=== PATIENT | female | born 1960 | race Caucasian/White ===

== ENCOUNTER → 2017-07-18 08:45 | Outpatient (CLI) | payer BC, SELFPAY ==
--- NOTE | 2017-07-18 08:49 | MM_ITS ---
MM Dig screening mamm BI w/CAD CAD Screening COMPARISON: Digital mammograms 06/15/2015 and 07/05/2016 INDICATION: There is no personal or family history of breast cancer. There is been previous biopsy left breast for benign disease. TECHNIQUE: Standard CC and MLO images were obtained. R2 CAD reviewed. FINDINGS: Moderate diffuse fibroglandular densities are seen in both breasts again more prominent subareolar region of the right breast than left. The biopsy clip is again noted left breast. There is no suspicious lesion and there are no suspicious microcalcifications. IMPRESSION: Stable exam with no suspicious lesion seen BI-RADS Category: 2 Benign Finding(s) RECOMMENDED FOLLOW-UP: 1YR - 1 YEAR FOLLOW-UP (A letter has been sent to the patient regarding results of the study.)
== END ==
PROVIDERS: Family Provider Internal Medicine Adolescent Medicine; PCP Internal Medicine Adolescent Medicine; Visit Provider Nurse Practitioner Obstetrics & Gynecology
DX: Z12.31 Encounter for screening mammogram for malignant neoplasm of breast (principal)
CPT/HCPCS: 77067

== ENCOUNTER → 2018-07-25 09:40 | Outpatient (CLI) | payer BC, SELFPAY ==
--- NOTE | 2018-07-25 09:44 | MM_ITS ---
MM Dig screening mamm BI w/CAD CAD Screening COMPARISON: Digital mammograms with CAD 07/05/2016 and 07/18/2017 INDICATION: There is no personal or family history of breast cancer. There is been previous biopsy left breast for benign disease. TECHNIQUE: Standard CC and MLO images were obtained. R2 CAD reviewed. FINDINGS: Scattered fibroglandular densities are seen in both breast. Again noted is a biopsy clip left breast. There are stable nodular densities in each breast. There are couple benign-appearing calcifications in each breast. There is no suspicious lesion and there are no suspicious microcalcifications. IMPRESSION: Fibrofatty parenchyma no suspicious lesion seen BI-RADS Category: 2 Benign Finding(s) RECOMMENDED FOLLOW-UP: 1YR - 1 YEAR FOLLOW-UP (A letter has been sent to the patient regarding results of the study.)
== END ==
PROVIDERS: PCP Internal Medicine Adolescent Medicine; Visit Provider Internal Medicine Adolescent Medicine
DX: Z12.31 Encounter for screening mammogram for malignant neoplasm of breast (principal)
CPT/HCPCS: 77067

== ENCOUNTER → 2019-12-05 09:41 | Outpatient (CLI) | payer MEDICARE, SELFPAY ==
--- NOTE | 2019-12-05 09:41 | MM_ITS ---
PROCEDURE: MM DIG SCREENING MAMM BI W/CAD Digital Breast Tomosynthesis Included CLINICAL INDICATION: screening xmg There is no personal or family history of breast cancer. There has been a previous biopsy left breast for benign disease. COMPARISON: [facility] DIG MAMM-SCREEN ADDIE W/CAD from 07/05/2016 [facility] MM Dig screening mamm BI w/CAD from 07/18/2017 [facility] MM Dig screening mamm BI w/CAD from 07/25/2018 TECHNIQUE: Standard CC and MLO images and 3D Tomosynthesis was obtained. R2 CAD reviewed. FINDINGS: Mild to moderate fibroglandular densities are seen in the subareolar regions and central portions of both breasts. There is a biopsy clip left breast. There are few scattered benign-appearing calcifications in each breast. There is a stable small benign-appearing nodular density central portion right breast. There is stable minimal post biopsy scarring central portion left breast. There is no suspicious lesion in either breast and no suspicious microcalcifications. IMPRESSION: Fibrofatty parenchyma with no suspicious lesions seen BI-RAD Category: 2 Benign Finding(s) FOLLOW-UP: 1YR 1 Year Follow-up (A letter has been sent to the patient regarding results of the study.) Dictated by: Dr. Shahram Dunn MD 12/07/2019 09:[address] Shahram Dunn MD in [place] 12/07/2019 09:23
== END ==
PROVIDERS: PCP Internal Medicine Adolescent Medicine; Visit Provider Nurse Practitioner Obstetrics & Gynecology
DX: Z12.31 Encounter for screening mammogram for malignant neoplasm of breast (principal); Z01.419 Encounter for gynecological examination (general) (routine) without abnormal findings
CPT/HCPCS: 77063; 77067; 87086; 87088; 87186

== ENCOUNTER → 2019-12-05 15:45 | Outpatient (CLI) | payer MEDICARE, SELFPAY | PROVIDERS: Visit Provider Nurse Practitioner Obstetrics & Gynecology | DX: Z12.31 Encounter for screening mammogram for malignant neoplasm of breast (principal); N39.0 Urinary tract infection, site not specified | CPT/HCPCS: 77063; 77067; 87086; 87088; 87186 ==

== ENCOUNTER → 2019-12-10 12:50 | Outpatient (CLI) | payer MEDICARE, SELFPAY ==
--- NOTE | 2019-12-10 12:51 | US_ITS ---
PROCEDURE: US TRANSVAGINAL CLINICAL INDICATION: pelvic pain COMPARISON: PTV US PELVIS-TRANSVAGINAL ONLY from 06/19/2015 FINDINGS: Nabothian cysts are present measuring 2 12 mm. There is a 2.5 cm left ovarian cyst. No cul-de-sac fluid UTERUS: 8cm x 5cmx 5cm with a combined endometrial thickness of 2.7mm LEFT OVARY: [id number] with a volume of 6.8ml. RIGHT OVARY: [id number] with a volume of 3.8ml. IMPRESSION: 2.5 cm left ovarian cyst otherwise negative pelvic ultrasound Dictated by: Hany Rollins MD 12/10/2019 18:12 Electronically signed by Hany Rollins MD in [place] 12/10/2019 18:12
== END ==
PROVIDERS: PCP Internal Medicine Adolescent Medicine; Visit Provider Nurse Practitioner Obstetrics & Gynecology
DX: R10.2 Pelvic and perineal pain (principal)
CPT/HCPCS: 76830

== ENCOUNTER → 2020-11-17 13:21 | Outpatient (CLI) | payer MEDICARE, SELFPAY | PROVIDERS: Visit Provider Internal Medicine Adolescent Medicine | DX: R30.0 Dysuria (principal) | CPT/HCPCS: 87086; 87088; 87186 ==

== ENCOUNTER 2021-03-24 11:00 | Outpatient (RCR) | payer MEDICARE, SELFPAY ==
--- NOTE | 2020-11-24 10:23 | HMH.PTOPWND ---
Rehab Outpt Wound Evaluation Rehab OP Wound Evaluation Start: 11/24/20 10:12 Freq: Status: Active Protocol: Document 11/24/20 10:12 BONITA (Rec: 11/24/20 10:23 PHORYOLY [id number]) Electronically Signed By Bridger Sidhu, PT 11/24/20 10:12 Subjective/History History History Pt is 60 yowf who presents with c/o B LE edema, L > R, x ~ 1-2 yrs. She reports significantly worse edema over the past 2-3 mos with feelings of, my feet get really tight in my shoes and my legs are really heavy. B LE with pitting edema in gaitor areas and mild erythema noted as well. She reports pain in B LE with prolonged standing or walking, but no numbness or tingling. 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 Subjective Subjective Pt reports pain 7/10 at worst. No c/o tenderness to palpation. @+ pitting edema noted as well as fibrotic edema in B lower legs and feet . Lymphedema Eval Classification of Lymphedema Secondary Lymphedema Yes Stemmer's sign Stemmer's Sign yes Stage of Lymphedema Lymphedema stages Stage II (Pitting edema, increased fibrosis w/ decreased pitting) Skin Changes Dry Skin Yes Skin Folds Yes Redness Yes Brittle Uneven Nails Yes Discoloration of Skin Yes Other Changes Yes Pain Scale Pain Scale (0-10) 7 Radiation Therapy Has received radiation therapy no Chemo Therapy Has received chemo therapy no Affected Extremities Areas Affected by Lymphedema/Edema Right Lower Extremity,Left Lower Extremity Manual Lymphatic Drainage Treatment Area MLD Treatment Area Right Lower Extremity,Left Lower Extremity Wound Problems/Impairments Impairments Problems/Impairmments Impaired Endurance,Impaired Gait Pattern,Impaired Walking, Impaired Standing,Impaired Recreational Activities, Increased Edema,Lymphedema Present,Subjective C/O Pain,
--- NOTE | 2020-12-23 14:12 | HMH.RHREAS ---
Rehab Reassessment Rehab OP Re-assessment Start: 12/23/20 14:08 Freq: Status: Active Protocol: Document 12/23/20 14:09 BONITA (Rec: 12/23/20 14:12 BONITA [id number]) Electronically Signed By Bridger Sidhu, PT 12/23/20 14:09 Rehab Re-assessment Subjective Subjective Pt reports quite a bit less pain overall, 4/10 at worst. Objective Objective Notes Edema: 1+ pitting edema in B lower legs, less fibrotic edema to B thighs and feet. Assessment Progress Assessment Progressing as Expected Assessment Notes Improving edema, less tnederness, and less pain in B LE. Pt much more active at home and steadily increasing ambulation ability. Patient goals met ST,2,3,4 Goals Not Met LT,2,3,4,5,6 Revised Goals none Plan Plan Cont per initial POC. Frequency of Therapy 2 x/wk Duration of therapy 8 wks Time and Billing Re-Eval Time 15 Re-Eval Billing Units 1 PHYSICIAN CERTIFICATION: I certify the specified therapy services for Rosie Cardenas are required, authorized, and reviewed every 30 days.
--- NOTE | 2021-02-01 11:13 | HMH.RHREAS ---
Rehab Reassessment Rehab OP Re-assessment Start: 12/23/20 14:08 Freq: Status: Active Protocol: Document 02/01/21 11:11 BONITA (Rec: 02/01/21 11:13 BONITA [id number]) Electronically Signed By Bridger Sidhu, PT 02/01/21 11:11 Rehab Re-assessment Subjective Subjective Pt reports quite a bit less pain overall, 4/10 at worst. Objective Objective Notes Edema: 1+ pitting edema in B lower legs, less fibrotic edema to B thighs and feet. 0/ 4 tenderness to palpation along B lower legs. Assessment Progress Assessment Progressing as Expected Assessment Notes Improving edema, almost no tenderness, and much less pain in B LE. Pt continues to be much more active at home and steadily increasing ambulation ability. Patient goals met ST,2,3,4 Goals Not Met LT,2,3,4,5,6 Revised Goals none Plan Plan Cont per initial POC. Frequency of Therapy 2 x/wk Duration of therapy 8 wks Time and Billing Re-Eval Time 15 Re-Eval Billing Units 1 PHYSICIAN CERTIFICATION: I certify the specified therapy services for Rosie Cardenas are required, authorized, and reviewed every 30 days.
--- NOTE | 2021-02-26 10:24 | HMH.RHREAS ---
Rehab Reassessment Rehab OP Re-assessment Start: 12/23/20 14:08 Freq: Status: Active Protocol: Document 02/26/21 10:21 BONITA (Rec: 02/26/21 10:24 BONITA [id number]) Electronically Signed By Bridger Sidhu, PT 02/26/21 10:21 Rehab Re-assessment Subjective Subjective I can get my shoes on easier and they feel better when I get up to walk. Objective Objective Notes B LE with less fibrotic edema, more soft tissue quality throughout. 1/4 tenderness to palpation on B lower legs. Toe creases more visible bilaterally denoting decreased B foot edema. Assessment Progress Assessment Progressing as Expected Assessment Notes Improving edema, almost no tenderness, and much less pain in B LE. Improved mobility, remains mildly tender to palpation in B gaitor area though. Patient goals met ST,2,3,4 Goals Not Met LT,2,3,4,5,6 Revised Goals none Plan Plan Cont per initial POC. Frequency of Therapy 2 x/wk Duration of therapy 8 wks Time and Billing Re-Eval Time 15 Re-Eval Billing Units 1 PHYSICIAN CERTIFICATION: I certify the specified therapy services for Rosie Cardenas are required, authorized, and reviewed every 30 days.
== END 2021-03-24 11:05 | disposition home or self-care (01) ==
LOC: PT 11:00
PROVIDERS: PCP Internal Medicine Adolescent Medicine; Visit Provider Internal Medicine Adolescent Medicine
DX: I89.0 Lymphedema, not elsewhere classified (principal)
CPT/HCPCS: 97140; 97162; 97164; 97760

== ENCOUNTER → 2023-03-08 10:09 | Outpatient (CLI) | payer MEDICARE, SELFPAY ==
--- NOTE | 2023-03-08 10:15 | MM_ITS ---
PROCEDURE INFORMATION: Exam: MG Bilateral Screening 3D Mammography Exam date and time: 03/08/2023 10:15 AM Age: 62 years old Clinical indication: Screening examination TECHNIQUE: Imaging protocol: Bilateral Screening tomosynthesis and 2D mammography including computer-aided detection (CAD) when performed. COMPARISON: 1. MG MM DIG SCREENING MAMM BI W/CAD 12/05/2019 9:46 AM 2. MG [facility] MM Dig screening mamm BI w/CAD 07/25/2018 10:08 AM FINDINGS: MAMMOGRAPHY: Breast composition: There are scattered areas of fibroglandular density. Mass: None. Architectural distortion: None. Calcifications: No suspicious calcifications. Asymmetric density: None. Skin thickening: None. Axillary adenopathy: None. IMPRESSION: No mammographic evidence of malignancy. Annual screening is recommended unless otherwise clinically indicated. ASSESSMENT: BI-RADS Category 1: Negative
== END ==
PROVIDERS: PCP Internal Medicine Adolescent Medicine; Visit Provider Internal Medicine Adolescent Medicine
DX: Z12.31 Encounter for screening mammogram for malignant neoplasm of breast (principal)
CPT/HCPCS: 77063; 77067

== ENCOUNTER 2024-05-28 09:59 | Outpatient (CLI) | payer MEDICARE, SELFPAY ==
--- NOTE | 2024-05-28 10:10 | XR_ITS ---
FINAL REPORT CLINICAL HISTORY: FALL 3 WEEKS AGO FINDINGS: Five views were obtained. There is no acute fracture. Alignment is within normal limits. There is moderate diffuse degenerative disc disease. Moderate lower lumbar facet arthropathy is identified. IMPRESSION: Degenerative changes without acute process. Reviewed, Interpreted and Dictated by Debbie Hagen MD Transcribed by Oneida Chen Authenticated and [facility]
--- NOTE | 2024-05-28 10:10 | XR_ITS ---
FINAL REPORT CLINICAL HISTORY: FALL 3 WEEKS AGO FINDINGS: LEFT HIP Three views of the left hip demonstrate no acute fracture or dislocation. The joint spaces appear normal. The visualized bony structures are well aligned. No soft tissue abnormality is seen. IMPRESSION: No acute bony abnormality. Reviewed, Interpreted and Dictated by Debbie Hagen MD Transcribed by Oneida Chen Authenticated and [facility]
== END 2024-05-28 23:59 | disposition home or self-care (01) ==
LOC: RAD 10:00
PROVIDERS: PCP Internal Medicine Adolescent Medicine; Visit Provider Nurse Practitioner Family
DX: M25.552 Pain in left hip (principal); M54.50 Low back pain, unspecified
CPT/HCPCS: 72110; 73502

== ENCOUNTER 2025-06-10 13:42 | Outpatient (CLI) | payer MEDICARE, SELFPAY ==
--- NOTE | 2025-06-10 13:59 | MM_ITS ---
PROCEDURE INFORMATION: Exam: MG Bilateral Screening 3D Mammography Exam date and time: 06/10/2025 2:21 PM Age: 64 years old Clinical indication: Screening examination TECHNIQUE: Imaging protocol: Bilateral Screening tomosynthesis and 2D mammography including computer-aided detection (CAD) when performed. COMPARISON: MG MM DIG SCREENING MAMM BI W/CAD 03/08/2023 10:15 AM FINDINGS: MAMMOGRAPHY: Breast composition: There are scattered areas of fibroglandular density. Mass: None. Architectural distortion: None. Calcifications: No suspicious calcifications. Asymmetric density: None. Skin thickening: None. Axillary adenopathy: None. IMPRESSION: No mammographic evidence of malignancy. Annual screening is recommended unless otherwise clinically indicated. ASSESSMENT: BI-RADS Category 1: Negative.
[2025-06-10 14:08] LABS: Hematocrit 45.8 % (37.0-47.0); Hemoglobin 14.8 g/dL (12.2-16.2); Immature Granulocytes % 0.3 %; Mean Corpuscular HGB Conc 32.3 g/dL (31.8-35.4); Mean Corpuscular Hemoglobin 29.6 pg (27.0-31.2); Mean Corpuscular Volume 91.6 fl (81-99); Nucleated Red Blood Cells % 0 %; Platelet Count 249 K/mm3 (142-424); Red Blood Count 5.00 M/mm3 (4.20-5.40); Red Cell Distribution Width-SD 44.4 fL; White Blood Count 6.8 K/mm3 (4.8-10.8)
[2025-06-10 14:45] LABS: Alanine Aminotransferase 14 U/L (12-78); Albumin Level 4.3 g/dl (3.5-5.0); Albumin/Globulin Ratio 1.7 (1.1-1.8); Alkaline Phosphatase 96 U/L (38-126); Anion Gap 8.4 mEq/L (5-15); Aspartate Amino Transferase 22 U/L (14-36); Bilirubin,Total 0.8 mg/dl (0.2-1.3); Blood Urea Nitrogen 19 mg/dl (7-17); Calcium 9.5 mg/dl (8.4-10.2); Carbon Dioxide 30 mmol/L (22.0-30.0); Chloride 104 mmol/L (98-107); Cholesterol 257 mg/dl (140-200); Creatinine,Serum 0.90 mg/dl (0.52-1.04); Estimated Glomerular Filt Rate 63 ml/min (>60); GFR (African American) 77 ML/MIN (>60); Globulin 2.5 g/dL (1.3-3.2); Glucose 106 mg/dl (74-100); HDL Cholesterol 101 mg/dl (40-60); Potassium 4.4 mmoL/L (3.5-5.1); Sodium 138 mmol/L (136-145); Total Protein,Serum 6.8 g/dl (6.3-8.2); Triglycerides 108 mg/dl (30-150)
[2025-06-10 15:01] LABS: 25-OH Vitamin D, Total 24.7 ng/mL (30-100)
[2025-06-10 15:33] LABS: Vitamin B12 892 pg/mL (239-931)
[2025-06-10 15:59] LABS: Hemoglobin A1C 5.3 % (4.0-6.0)
[2025-06-10 16:27] LABS: Iron 104 ug/dL (37-170)
[2025-06-10 16:37] LABS: Total Iron Binding Capacity 252 ug/dL (265-497)
== END 2025-06-10 23:59 | disposition home or self-care (01) ==
LOC: RAD 13:43
PROVIDERS: Nurse Practitioner Family; PCP Internal Medicine Adolescent Medicine; Visit Provider Internal Medicine Adolescent Medicine
DX: Z12.31 Encounter for screening mammogram for malignant neoplasm of breast (principal); Z00.00 Encounter for general adult medical examination without abnormal findings; E78.5 Hyperlipidemia, unspecified; D50.0 Iron deficiency anemia secondary to blood loss (chronic); E55.9 Vitamin D deficiency, unspecified; E53.8 Deficiency of other specified B group vitamins; R73.03 Prediabetes; R92.323 Mammographic fibroglandular density, bilateral breasts
CPT/HCPCS: 36415; 77063; 77067; 80053; 80061; 82306; 82607; 83036; 83540; 83550; 85025